=== PATIENT | female | born 1995 | race African-American/Black ===

== ENCOUNTER → 2019-05-30 17:41 | Outpatient (CLI) | payer MEDICAID ==
[2015-10-22 10:29] VITALS: BMI 21.9
[~2019-05-30 17:41] MED LIST: HYDROCODONE-APA1 TAB PO; IBUPROFEN600 MG PO; PRENAVITE1 TAB PO
[2019-05-30 19:22] LABS: GLUCOSE NEGATIVE (NEGATIVE); KETONE LARGE mg/dL (NEGATIVE); NITRITE NEGATIVE (NEGATIVE)
[2019-05-30 19:23] LABS: BACTERIA MODERATE /hpf (NEGATIVE); BILIRUBIN NEGATIVE (NEGATIVE); EPITHELIAL CELLS 0-5 /hpf (0-5); RED CELLS - URINE 0-5 /hpf (0-5); UROBILINOGEN NORMAL (NORMAL)
== END | disposition home or self-care (01) ==
LOC: D.LDO 17:41
PROVIDERS: ATTEND Obstetrics & Gynecology
DX: O21.2 Late vomiting of pregnancy (principal); Z3A.32 32 weeks gestation of pregnancy

== ENCOUNTER 2019-07-12 05:11 | Inpatient (IN) | payer MEDICAID ==
[~2019-07-12] VITALS: Ht 157.5 cm; Wt 68.9 kg
[2019-07-12] VITALS (9 sets, daily range): BP systolic 89–114; BP diastolic 51–68; Ht 157.5 cm; Wt 68.9 kg
[2019-07-12 06:03] LABS: BILIRUBIN NEGATIVE (NEGATIVE); GLUCOSE NEGATIVE (NEGATIVE); KETONE NEGATIVE (NEGATIVE); NITRITE NEGATIVE (NEGATIVE); SPECIFIC GRAVITY 1.015 (1.005-1.020); UROBILINOGEN NORMAL (NORMAL)
[2019-07-12 06:44] LABS: HEMOGLOBIN 10.1 g/dL (12-16); MCH 29.3 pg (26.0-34.0); MCHC 32.6 g/dL (31.0-37.0); MCV 89.9 fL (80.0-100.0); MEAN PLATELET VOLUME 9.9 fL (7.4-10.4); RBC 3.45 10x6/uL (4.00-5.40); RDW 15.2 % (11.5-14.5); WBC 4.5 10x3/uL (4.8-10.8)
--- NOTE | 2019-07-12 10:40 | NUR ---
RECEIVED PT TO LABOR AND DELIVERY POST SECTION BY DR. ROLDAN BY BED, TO ROOM #1274. PT HAS LOW TRANSVERSE INCISION, ABDOMEN PALPATES SOFT, FUNDUS FIRM, U/2, SMALL RUBRA LOCHIA, NO CLOTS EXPELLED. PT HAS DOCKERY CATH DRAINING LIGHT YELLOW URINE, 100 ML'S NOTED IN UROMETER. ICE PACK PLACED OVER GOWN TO INCISION. PT DENIES SOB, DIFFICULTY BREATHING, DENIES DIZZINESS. PT DENIES NAUSEA. ICE WATER SERVED. FAMILY CALLED TO ROOM. SR UP X 2, CALL LIGHT AND PHONE WITHIN REACH.
--- NOTE | 2019-07-12 10:45 | NUR ---
PERICARE DONE WITH WARM WET WASHCLOTHS, FUNDUS FIRM, U/1, NEW PERIPADS PLACED. SRUP X2, CALL LIGHT AND PHONE WITHIN REACH. PT DENIES NEEDS AT THIS TIME.
--- NOTE | 2019-07-12 11:50 | MORECARE ---
CASE MANAGEMENT DISCHARGE SUMMARY PATIENT: ANNE DURHAM UNIT: [id number] ADM DATE: 07/12/19 AGE: 24 : [birth year] SEX: F ROOM/BED: D.1274 AUTHOR: EVETTE HURLEY PHYSICIAN: REFERRING PHYSICIAN: MAHESH ROLDAN MD DATE OF SERVICE: 07/12/19 Discharge Plan Patient Name: ANNE DURHAM [facility] [facility] 1995 Planned Disposition: Home Anticipated Discharge Date: 07/15/19 Discharge Date: Expected LOS: 3 Initial Reviewer: [email or web address] Initial Review Date: 07/12/2019 Generated: 07/12/19 12:49 pm Patient Name: ANNE DURHAM Page 46745 at 1150 All edits/amendments must be made on the electronic document DICTATION DATE: 07/12/19 1149 MICROBIOLOGY MANAGER: SINAN 07/12/19 1149 RPT#: [id number] DC DATE: STATUS: ADM IN [facility] [address] [place] [address] END OF REPORT
[2019-07-12 13:39] LABS: BASOPHILS 0.2 % (0-2); EOSINOPHILS 0.6 % (0-7); HEMATOCRIT 29.9 % (36.0-48.0); HEMOGLOBIN 9.6 g/dL (12-16); IMMATURE GRANULOCYTES 0.2 % (0-5); LYMPHOCYTES 24.1 % (15-50); MCH 29.2 pg (26.0-34.0); MCHC 32.1 g/dL (31.0-37.0); MCV 90.9 fL (80.0-100.0); MONOCYTES 6.1 % (2-11); NEUTROPHILS 68.8 % (40-80); PLATELET COUNT 232 10x3/uL (130-400); RBC 3.29 10x6/uL (4.00-5.40); RDW 15.2 % (11.5-14.5); WBC 4.9 10x3/uL (4.8-10.8)
--- NOTE | 2019-07-12 13:45 | NUR ---
TO PT'S ROOM, PT IS AWAKE, LYING IN BED, DENIES SOB, DIFFICULTY BREATHING, OR N/V, DENIES DIZZINESS. FUNDUS FIRM, U/1, SMALL RUBRA LOCHIA, NO CLOTS EXPELLED. DOCKERY CATH CONTINUES TO DRAIN LIGHT YELLOW URINE, 300 MLS NOTED IN UROMETER. PT INSTRUCTED ON USE OF INCENTIVE SPIROMETER, PT USES WELL, ENCOURAGED TO USE 10 TIMES/HR. PT THEN PERFORMS COUGHING AND DEEP BREATHING EXERCISES. PT TILTED TO RIGHT. PILLOWS PLACED BEHIND BACK FOR SUPPORT AND COMFORT. SRUP X2, CALL LIGHT AND PHONE WITHIN REACH.
--- NOTE | 2019-07-12 15:00 | NUR ---
TO PT'S ROOM, PT IS LYING IN BED, HOB AT 30 DEGREES, LIGHTS ARE OUT IN ROOM, PT IS ON CELL PHONE. LIGHTS ON, FUNDUS FIRM, U/1, SMALL RUBRA LOCHIA, ONE QUARTER SIZED CLOT EXPELLED. PERICARE DONE WITH WARM WET WASHCLOTHS, NEW PERIPADS APPLIED. TOWELS/CHUX CHANGED. NEW ICE PACK PLACED OVER GOWN TO INCISION. PT SERVED LARGE GLASS OF ICE WATER. SR UP X2, CALL LIGHT AND PHONE WITHIN REACH.
--- NOTE | 2019-07-12 18:30 | NUR ---
PT IS SITTING UP IN THE BED, WITH NURSERY HELPING PT TO BREASTFEED, NIPPLE SHIELD PROVIDED BY [facility]KE. DOCKERY CATH EMPTIED, YELLOW URINE. SEE I/O. IV PITOCIN 20 UNITS AT 125 ML/HR CONTINUES TO INFUSE, PT CONTINUES TO USE DOUBLE SURFACE OPERATOR BUTTON FOR PAIN RELIEF. SEE EMAR FOR ALL PAIN MEDS ADM BY THIS RN. SR UP X2, CALL LIGHT AND PHONE WITHIN REACH.
--- NOTE | 2019-07-12 21:30 | NUR ---
room check, pt resting quietly, westfall to drainage draining clear yellow urine, sister at [facility], snack box given, linens given for fold out couch, no needs voiced at this time
--- NOTE | 2019-07-12 22:17 | NUR ---
at bedside, fundus firm, in arms, , denies pain or discomfort, no needs voiced, ice water given
--- NOTE | 2019-07-13 00:05 | NUR ---
pt resting quietly w/eyes closed, respirations even and unlabored, w/o signs of distress, did not disturb
[2019-07-13 02:39] VITALS: BP 99/61
--- NOTE | 2019-07-13 02:41 | NUR ---
in room for pain med, pt infant,medicated per orders, vss, uop wnl, fundus firm, u-2
--- NOTE | 2019-07-13 03:34 | NUR ---
tirso pads changed, lochia scant, gown also changed, fresh ice pack given for incisional area
--- NOTE | 2019-07-13 06:32 | NUR ---
alert and w/o c/o pain or discomfort, westfall emptied 2400 emptied for shift. fundus firm, lochia scant, tirso pads replaced. no needs voiced,
[2019-07-13 07:10] LABS: BASOPHILS 0.1 % (0-2); EOSINOPHILS 1.2 % (0-7); HEMATOCRIT 27.3 % (36.0-48.0); HEMOGLOBIN 8.8 g/dL (12-16); IMMATURE GRANULOCYTES 0.1 % (0-5); LYMPHOCYTES 11.8 % (15-50); MCHC 32.2 g/dL (31.0-37.0); MCV 90.1 fL (80.0-100.0); MEAN PLATELET VOLUME 9.3 fL (7.4-10.4); MONOCYTES 6.3 % (2-11); NEUTROPHILS 80.5 % (40-80); PLATELET COUNT 217 10x3/uL (130-400); RBC 3.03 10x6/uL (4.00-5.40); WBC 7.5 10x3/uL (4.8-10.8)
[2019-07-13 07:13] LABS: RAPID PLASMA REAGIN Non Reactive (Non Reactive)
--- NOTE | 2019-07-13 07:18 | NUR ---
ASSUMED CARE OF THIS PATIENT SITTING UP IN BED HOLDING . GETTING READY TO BREASTFEED. CLEAR LIQUID DIET AT BEDSIDE. VISITOR ON COUCH. FRESH WATER AND ICE GIVEN. ENCOURAGED TO HYDRATE WITH WATER THIS WILL HELP BREASTMILK PRODUCTION. IV INFUSING LEFT FA AT KVO RATE, 100 ML NS WITH 20 UNITS PITOCIN LEFT IN BAG. ANTICIPATE NORMALIZATION THIS AM. DOCKERY DRAINING CLEAR YELLOW URINE. WILL COMPLETE SHIFT ASSESSMENT WHEN AWAKE. SIDERAILS UP X 2, CALL LIGHT IN REACH.
--- NOTE | 2019-07-13 09:06 | NUR ---
SITTING UP IN BED . SMILING. NO REQUESTS. INFORMED OF POC FOR THIS AM. VERBALIZED UNDERSTANDING. REGULAR BREAKFAST TRAY ORDERED. WILL COMPLETE ASSESSMENT, DC IV FLUIDS AND DOCKERY AFTER BF AND BREAKFAST. SIDERAILS UP X2, CALL LIGHT IN REACH.
[2019-07-13 09:37] VITALS: BP 116/62
--- NOTE | 2019-07-13 09:37 | NUR ---
SITTING UP IN BED. INFANT IN CRIB. FINISHED EATING REGULAR DIET. SHIFT ASSESSMENT COMPLETED. IV FLUIDS DC'S AND SALINE LOCK FLUSHED. DOCKERY DC'D WITH 1000 ML CLEAR URINE IN BAG. LOCHIA RUBRA SMALL TO MOD, PERINEAL CARE GIVEN WITH WARM WASH CLOTH. CLEAN PADS X 2 PLACED. INCENTIVE SPIROMETER USED X 3, DISCUSSED USE, FREQUENCY, PURPOSE AND TECHNIQUE. DEMONSTRATED UNDERSTANDING. SCD'S IN PLACE BILATERALLY. HAS BEEN . AB+, RUBELLA IMMUNE, NON-SMOKER, WILL CHECK TDAP STATUS. DENIES NEEDING ANYTHING. HAS BEEN USING DILAUDID DIRECTOR LABOR STANDARDS FOR PAIN. CURRENTLY 06/22 WHICH SHE SAYS IS LIVEABLE. USED DIRECTOR LABOR STANDARDS PRIOR TO DC IV FLUIDS. DISCUSSED PO PAIN MANAGEMENT. SIDERAILS UP X 2, CALL LIGHT IN REACH..
--- NOTE | 2019-07-13 10:25 | NUR ---
DR OLIVER VISITED. REMOVED LOW ABD DRESSING. PLANS TO REDRESS LTCS AND REMOVE TOMORROW.
--- NOTE | 2019-07-13 11:16 | NUR ---
UP TO BATHROOM TO VOID. TOLERATED VERY WELL. VOIDED 500 ML URINE, RUBRA SCANT. RACH-CARE DONE BY PATIENT WITH WASHCLOTH AND FOAMY SOAP. INCISION CLEAN DRY, INTACT. NO DRAINAGE NOTED. CLEAN RACH-PANTS ON WITH PERIPADS X2. RACH-PAD PLACED OVER INCISION. CURRENTLY BRUSHING TEETH, THEN PLANS TO AMBULATE IN ROOM. VISITOR AND INFANT IN ROOM. 5/10 ABD CRAMPING, DENIES NEEDING ANYTHING ADDITIONAL FOR PAIN. TO LET RN KNOW IF NEEDING ANYTHING FOR PAIN OR OTHER. VERBALIZED UNDERSTANDING.
--- NOTE | 2019-07-13 11:35 | NUR ---
DR OLIVER ON L&D. INFORMED PT HAS BEEN UP TO VOID AND THAT NO DRAINAGE CURRENTLY NOTED FROM INCISION. MD TO ROOM FOR EVALUATION. SHE DECIDED NOT TO PLACE NEW DRESSING AT THIS TIME. V.O. RECIEVED TO PLACE ABD DRESSING IF INCREASED BLEEDING NOTED FROM INCISION.
--- NOTE | 2019-07-13 12:16 | NUR ---
SITTING UP IN BED . REGULAR DIET AT BEDSIDE. VISITOR X 1 IN ROOM. NO REQUESTS AT PRESENT. SIDERAILS UP X2, CALL LIGHT IN REACH.
--- NOTE | 2019-07-13 13:16 | NUR ---
SITTING UP IN BED HOLDING . DENIES NEEDING ANYTHING FOR PAIN OR OTHERWISE AT THIS TIME. TO CALL IF ANYTHING IS NEEDED. CALL LIGHT IN REACH. SIDERAILS UP X 2.
[2019-07-13 14:03] VITALS: BP 116/58
--- NOTE | 2019-07-13 14:07 | NUR ---
AROUSED FROM SLEEP FOR VS. INFANT SLEEPING IN BED WITH PT. REMINDED NOT TO FALL ASLEEP WITH IN BED SECONDARY TO POTENTIAL FOR INFANT FALL OR SUFFICATION IN SOFT PILLOWS, BEDDING AND BEND IN BED. INFANT PUT IN CRIB SO PT CAN TAKE ANOTHER NAP. VERBALIZED UNDERSTANDING. U/3 FIRM MIDLINE, SCANT LOCHIA RUBRA. SCANT SEROUS DRAINAGE NOTED LEFT SIDE OF RACH-PAD OVER INCISION. REMINDED TO CHANGE ALL RACH-PADS WHEN UP TO VOID. LIGHTS ON LOW, SIDERAILS UP X 2, CALL LIGHT IN REACH. TO CALL IF ANYTHING IS NEEDED.
--- NOTE | 2019-07-13 15:02 | NUR ---
SLEEPING ON BACK IN LOW AGUIRRE'S POSITION. RESPIRATION EVEN. IN CRIB, RESPIRATIONS EVEN.
--- NOTE | 2019-07-13 16:07 | NUR ---
SITTING UP IN BED HOLDING INFANT. SCHEDULED MOTRIN WAS GIVEN. 4/10 INTERMITTENT CRAMPING. UP AD ANTONIA TO BR WITHOUT DIFFICULTY. SAYS SHE HAS VOIDED. 400 ML URINE IN [place] HAT. DENIES NEEDING ANYTHING AT THIS TIME. LIGHTS TURNED ON PER PT REQUESTS. SIDERAILS UP X 2, CALL LIGHT IN REACH. TO CALL IF ANYTHING IS NEEDED.
--- NOTE | 2019-07-13 17:05 | NUR ---
SITTING UP IN BED HOLDING . REGULAR DIET AT BEDSIDE. DENIES NEEDING ANYTHING. 4/10 CRAMPING, DENIES NEEDING ADDITIONAL PAIN MEDICATION. TO CALL IF ANYTHING IS NEEDED.
--- NOTE | 2019-07-13 18:20 | NUR ---
UP TO BATHROOM TO VOID. RACH-CARE PER SELF. AMBULATING IN ROOM. SAYS SHE HAS BEEN USING INCENTIVE SPIROMETER. ENCOURAGED TO AMBULATE IN CARRILLO, CAN PUSH CRIB WHEN WALKING IF DESIRES. ALSO TO LET RN KNOW WHEN WANTING TO TAKE A SHOWER. NO REQUESTS AT THIS TIME. REGULAR DIET AT BEDSIDE. NO CURRENT VISITORS.
--- NOTE | 2019-07-13 18:24 | NUR ---
CURRENTLY AMBULATING IN [place] WITH IN CRIB. TOLERATING WELL.
[2019-07-13 19:13] VITALS: BP 108/58
--- NOTE | 2019-07-13 19:15 | NUR ---
called to room, requesting sl be removed do to irritation, site wnl, sl removed, pressure held w/ 2x2, bandaid applied
--- NOTE | 2019-07-13 19:33 | NUR ---
pt rec'd alert and oriented, assessment completed, sitting up high fowlers breast feeding , see assessment sheet. no needs voiced at this time.
--- NOTE | 2019-07-13 21:35 | NUR ---
status check, sitting up semifowlers, holding , no needs voiced, denies pain or discomfort, states is about to get up and walk a bit
--- NOTE | 2019-07-13 22:15 | NUR ---
pt ambulating in room, denies need for more tirso care products, motrin given per schedule, no needs voiced, denies pain or discomfort
--- NOTE | 2019-07-14 00:15 | NUR ---
snack given, sandwich tray, fob at bedside, in pt's arms, no further needs voiced
--- NOTE | 2019-07-14 01:52 | NUR ---
this nurse at bedside, pt resting quietly, w/o signs of distress, did not disturb, taken to nsy in open crib per request of fob
[2019-07-14 03:55] VITALS: BP 115/76
--- NOTE | 2019-07-14 05:35 | NUR ---
at bedside, resting quietly, w/o signs of distress, eyes closed, arouses easily to name called, denies needs at this time. taken to nsy in open crib at fob request
--- NOTE | 2019-07-14 07:00 | NUR ---
ASSUMED CARE OF PATIENT AT THIS TIME. CURRENTLY SLEEPING IN LOW FOWLERS POSITION. RESPIRATIONS EVEN. VISITOR SLEEPING ON COUCH. IN NURSERY. WILL COMPLETE SHIFT ASSESSMENT WHEN AWAKE/AFTER BREAKFAST. SIDERAILS UP X 2.
--- NOTE | 2019-07-14 08:05 | NUR ---
SITTING UP IN BED . FOB IN ROOM ASKED ABOUT DC HOME. INFORMATION GIVEN REGARDING OB AND PEDS ROUNDS AND DC ORDERS. DISCUSSED TDAP WITH PATIENT. PT DECLINES TDAP. WILL ALSO GIVE WRITTEN INFORMATION FOR HER TO REVIEW. WILL COMPLETE SHIFT ASSESSMENT AFTER . REGULAR DIET AT BEDSIDE.
[2019-07-14 09:18] VITALS: BP 111/70
--- NOTE | 2019-07-14 09:18 | NUR ---
SITTING UP IN BED HOLDING ON LAP. SHIFT ASSESSMENT COMPLETED. BREAKFAST AT BEDSIDE. FRESHWATER GIVEN. DENIES NEEDING ANYTHING. SIDERAILS UP X 2, CALL LIGHT IN REACH.
--- NOTE | 2019-07-14 10:18 | NUR ---
SITTING ON EDGE OF BED EATING BREAKFAST. SCHEDULED MOTRIN WAS GIVEN. 4/10 INTERMITTENT CRAMPING. DENIES NEEDING OTHER PAIN MEDICATION. WILL GIVE VIT C DOSE WHEN FERROUS IS DUE. ANTICIPATED DC HOME TODAY. TO CALL IF ANYTHING NEEDED.
--- NOTE | 2019-07-14 10:49 | NUR ---
UP TO SHOWER. DISCUSSED INCISION CLEANING AND CARE. IN NURSERY. NO CURRENT VISITORS. DR OLIVER ON L&D TO MAKE ROUNDS.
--- NOTE | 2019-07-14 11:24 | NUR ---
DR OLIVER AND DR ROCHE VISITED PT. PLAN DC OF PT AND HOME. PT COMPLETED SHOWER. NO REQUESTS. CONTINUES TO DECLINE TDAP. WRITTEN INFORMATION WAS GIVEN.
[2019-07-14] MEDS ORDERED: PERCOCET 5-3251 TAB PO (11:27)
--- NOTE | 2019-07-14 12:50 | NUR ---
DC TEACHING COMPLETED TO INCLUDE POST OP CARE, S&S INFECTION, DANGER SIGNS, PP DEPRESSION, BREASTCARE/BREAST FEEDING, MEDICATION ADMINISTRATION AND FOLLOW-UP. VERBAL AND WRITTEN INFORMATION GIVEN. STILL DESIRES TO TAKE PLACENTA HOME SO THAT HER SISTER CAN BURY FOR GOOD LUCK. CURRENTLY THIS RN IS TRYING TO LOCATE PLACENTA. CHECKED WITH LAB WHO IS TRYING TO LOCATE. ACCORDING TO NOTE LEFT ON L&D PLACENTA IS IN THE "SURGERY [facility] AREA". THIS PT PLACENTA IS NOT LOCATED ON L&D SPECIMEN FRIDGE AREA. SUBSTITUTE NURSE WAS CALLED AND SHE DIRECTED TO CONTACT LAB FOR ASSISTANCE.
--- NOTE | 2019-07-14 14:06 | NUR ---
DC'D VIA WHEELCHAIR, IN CARSEAT. ALL BELONGINGS REMOVED FROM ROOM. HAS PRESCRIPTION AND DC INSTRUCTIONS. PLACENTA WAS OBTAINED FROM OR SURICAL FROZEN AREA. NOTE ON TOP OF PLACENTA SAID IT HAD BEEN PLACED IN SMALL AMOUNT OF FORMALIN BEFORE LAB NOTED PT DESIRED TO KEEP. PER NOTE WRITTEN BY ÁNGEL THE FORMALIN WAS DRAINED OFF AND PLACENTA WAS RINSED AND PLACED IN NORMAL SALINE. THE LAB WAS CONTACTED LAB TODAY TO CONFIRM RELEASE TO PT. TALKED TO CHRISTAL REGARDING RELEASE OF PLACENTA DUE TO THE INFORMATION ABOVE. SHE ATTEMPTED TO CONTACT ÁNGEL WITHOUT SUCCESS. SHE WAS ABLE TO TALKED TO TRISH WHO SAID PLACENTA CAN BE RELEASED IF PATIENT SIGNED RELEASE FORM. RELEASE FORM WAS SIGNED 11 JUL 2009. INSTRUCTED PATIENT OF ABOVE INFORMATION AND INFORMED PT AND FOB THAT PLACENTA SHOULD NOT BE CONSUMED. ALSO DISCUSSED SUGGESTIONS FOR BURYING SUCH DIG DEEP HOLE, CONSIDER PLANTING A PLANT ON TOP AND SURROUND WITH ROCKS TO PREVENT ANIMALS FROM DIGGING IT UP. AVOID BURING IN BUCKET TO IMPROVE DECOMPOSITION. BOTH VERBALIZED UNDERSTANDING. PLACENTA IN BUCKET, DOUBLE BAGGED AND SENT HOME WITH PATIENT.
--- NOTE | 2019-07-15 08:48 | MORECARE ---
CASE MANAGEMENT DISCHARGE SUMMARY PATIENT: ANNE DURHAM UNIT: [id number] ADM DATE: 07/12/19 AGE: 24 : [birth year] SEX: F ROOM/BED: D.1274 AUTHOR: EVETTE HURLEY PHYSICIAN: REFERRING PHYSICIAN: MAHESH ROLDAN MD DATE OF SERVICE: 07/15/19 Discharge Plan Patient Name: ANNE DURHAM [facility] [facility] 1995 Planned Disposition: Home Anticipated Discharge Date: 07/15/19 Discharge Date: 07/14/2019 Expected LOS: 3 Initial Reviewer: [email or web address] Initial Review Date: 07/12/2019 Generated: 07/15/19 9:48 am Last DP export: 07/12/19 10:50 a Patient Name: ANNE DURHAM Page [id number] at 0848 All edits/amendments must be made on the electronic document DICTATION DATE: 07/15/1946 CONTINUOUS IMPROVEMENT COACH: SINAN 07/15/1946 RPT#: [id number] DC DATE:07/14/19 STATUS: DIS IN [facility] [address] [place] [address] END OF REPORT
== END 2019-07-14 14:06 | disposition home or self-care (01) | DRG 788 ==
LOC: D.LD 05:11 → D.SDCHOLD 07:30 → D.LD 07-14 14:06
PROVIDERS: ADMIT Obstetrics & Gynecology; ATTEND Obstetrics & Gynecology
PROC: 10D00Z1 Extraction of Products of Conception, Low, Open Approach (ICD-10-PCS; principal; 2019-07-12 07:30)
DX: O99.824 Streptococcus B carrier state complicating childbirth (principal); Z3A.39 39 weeks gestation of pregnancy; Z37.0 Single live birth; O34.219 Maternal care for unspecified type scar from previous cesarean delivery; R87.622 Low grade squamous intraepithelial lesion on cytologic smear of vagina (LGSIL); O75.9 Complication of labor and delivery, unspecified

== ENCOUNTER 2020-06-16 09:14 | Emergency (ER) | payer OTHER ==
[~2020-06-16] VITALS: Ht 157.5 cm; Wt 77.3 kg
[~2020-06-16 09:14] MED LIST changes: +PERCOCET 5-3251 TAB PO
[2020-06-16 09:20] VITALS: Ht 157.5 cm; Wt 77.3 kg
== END 2020-06-16 09:37 | disposition home or self-care (01) ==
LOC: D.ER 09:14
DX: L02.414 Cutaneous abscess of left upper limb (principal)